=== PATIENT | female | born 1965 | race Caucasian/White ===

== ENCOUNTER 2019-03-07 10:21 | Outpatient (CLI) | payer BC, OTHER ==
[2019-03-07] MEDS ORDERED: PROGESTERONE PO (10:48)
[2019-03-07] MEDS ORDERED: ANTIHISTAMINE (10:48)
[2019-03-07] MEDS ORDERED: TESTOSTERONE PO (10:48)
[2019-03-07] MEDS ORDERED: HGH PO (10:48)
[2019-03-07] MEDS ORDERED: ESTROGEN PO (10:48)
== END 2019-03-07 23:59 | disposition home or self-care (01) ==
LOC: STAR 10:21
PROVIDERS: ATTEND Otolaryngology
DX: Z02.9 Encounter for administrative examinations, unspecified (principal)

== ENCOUNTER 2019-03-11 05:46 | Day surgery (SDC) | payer BC, OTHER ==
[~2019-03-11] VITALS: Ht 160 cm; Wt 68.7 kg
[~2019-03-11 05:46] MED LIST: ANTIHISTAMINE; ESTROGEN PO; HGH PO; PROGESTERONE PO; TESTOSTERONE PO
[2019-03-11] MEDS ORDERED: LACTATED RINGERS 1,000 ML IV SCH (06:01)
[2019-03-11] MEDS ORDERED: EPINEPHRINE TOPICAL SOLN 1 MG/ML, 30ML ONE (06:57)
[2019-03-11] MEDS ORDERED: LIDOCAINE 1%-EPI 1:100K, 20ML ONE (06:58)
[2019-03-11] MEDS ORDERED: OXYMETAZOLINE NASAL SPRAY 0.05%, 15ML ONE (06:58)
[2019-03-11] MEDS ORDERED: FLUORESCEIN SODIUM 500 MG/5 ML ONE (06:58)
[2019-03-11] MEDS ORDERED: BACITRACIN OINT 500U/GM, 15 GM ONE (06:58)
[2019-03-11] MEDS ORDERED: BACITRACIN 50,000 UNIT ONE (06:59)
[2019-03-11] MEDS ORDERED: FENTANYL PF 250 MCG/5ML ONE (07:26)
[2019-03-11] MEDS ORDERED: MIDAZOLAM 1 MG/ML, 2ML ONE (07:26)
[2019-03-11] MEDS ORDERED: LIDOCAINE-MPF 2% ,5ML ONE (07:27)
[2019-03-11] MEDS ORDERED: PROPOFOL 10 MG/ML, 20ML ONE (07:27)
[2019-03-11] MEDS ORDERED: SUCCINYLCHOLINE 20 MG/ML, 10ML ONE (07:28)
[2019-03-11] MEDS ORDERED: ACETAMINOPHEN 500 MG TABLET PO ONE (07:30)
[2019-03-11] MEDS ORDERED: SCOPOLAMINE PATCH, 1.5MG PATCH.TD72 TD ONE (07:30)
[2019-03-11] MEDS ORDERED: DEXAMETHASONE 4 MG/ML, 1ML ONE ×2 (07:31)
[2019-03-11] MEDS ORDERED: LIDOCAINE GEL 2%, 5ML ONE (07:31)
[2019-03-11] MEDS ORDERED: CEFAZOLIN 1,000 MG ONE (07:40)
[2019-03-11] MEDS ORDERED: ROCURONIUM 10 MG/ML,10ML ONE (07:40)
[2019-03-11] MEDS ORDERED: EPHEDRINE 50 MG/ML, 1ML ONE (08:18)
[2019-03-11] MEDS ORDERED: LABETALOL 5MG/ML, 20ML IV PRN (08:30)
[2019-03-11] MEDS ORDERED: ONDANSETRON ODT 8 MG PO PRN (08:30)
[2019-03-11] MEDS ORDERED: PROMETHAZINE 25 MG/ML, 1ML IV PRN (08:30)
[2019-03-11] MEDS ORDERED: ALBUTEROL SULFATE 2.5 MG/3 ML NPPB PRN (08:30)
[2019-03-11] MEDS ORDERED: hydrALAzine 20 MG/ML, 1ML IV PRN (08:30)
[2019-03-11] MEDS ORDERED: OXYcodone 5 MG/5 ML ORAL.SOL UDC PO PRN (08:30)
[2019-03-11] MEDS ORDERED: MEPERIDINE/PF 25MG/ML,1ML IVPush PRN (08:30)
[2019-03-11] MEDS ORDERED: PROMETHAZINE 12.5 MG SUPP PR PRN (08:30)
[2019-03-11] MEDS ORDERED: DIAZEPAM 5 MG/ML, 2ML IVPush PRN (08:30)
[2019-03-11] MEDS ORDERED: HALOPERIDOL 5 MG/ML IV PRN (08:30)
[2019-03-11] MEDS ORDERED: MIDAZOLAM 1 MG/ML, 2ML IV PRN (08:30)
[2019-03-11] MEDS ORDERED: ONDANSETRON 2MG/ML, 2ML IV PRN (08:30)
[2019-03-11] MEDS ORDERED: EPHEDRINE 50 MG/ML, 1ML IVPush PRN (08:30)
[2019-03-11] MEDS ORDERED: SUGAMMADEX 200 MG/2 ML IVPush ONE (09:30)
[2019-03-11] MEDS ORDERED: ONDANSETRON 2MG/ML, 2ML ONE ×2 (09:30)
[2019-03-11] MEDS: FENTANYL PF 100 MCG/2ML IV PRN ×2 (10:18→10:30)
[2019-03-11] MEDS: HYDROmorphone 2 MG/ML, 1ML IVPush PRN ×2 (10:25→10:39)
== END 2019-03-11 12:30 | disposition home or self-care (01) ==
LOC: OUT 05:46
PROVIDERS: ATTEND Otolaryngology
DX: J32.4 Chronic pansinusitis (principal); J34.2 Deviated nasal septum; J32.0 Chronic maxillary sinusitis; D49.7 Neoplasm of unspecified behavior of endocrine glands and other parts of nervous system; J45.909 Unspecified asthma, uncomplicated; Z79.899 Other long term (current) drug therapy; Z88.0 Allergy status to penicillin; Z88.1 Allergy status to other antibiotic agents
CPT/HCPCS: 30520; 31257; 31267; 88304; 88311; J0330; J0690; J1100; J1170; J2250; J2405; J2704; J3010; J3490; J7120

== ENCOUNTER → 2020-10-15 | Outpatient (CLI) | payer OTHER ==
[~2020-10-15] MED LIST changes: +OMNIPAQUE 350 MG/ML, 150 ML BOTTLE ONE
== END | disposition home or self-care (01) ==
LOC: CFH 09:38
PROVIDERS: ATTEND Physician Assistant
DX: R31.0 Gross hematuria (principal)
CPT/HCPCS: 74178; Q9967